=== PATIENT | male | born 1965 | race Asian ===

== ENCOUNTER 2022-05-26 11:34 | Emergency (ER) | payer OTHER ==
[~2022-05-26] VITALS: Ht 170.2 cm; Wt 73.5 kg
[2022-05-26 11:57] VITALS: TEMP 99.1
[2022-05-26 14:15] VITALS: BP 180/99
== END 2022-05-26 14:15 | disposition home or self-care (01) ==
LOC: ED 11:34
PROC: 2W3DX1Z Immobilization of Left Lower Arm using Splint (ICD-10-PCS; principal; 2022-05-26)
DX: S52.532A Colles' fracture of left radius, initial encounter for closed fracture (principal); S62.397A Other fracture of fifth metacarpal bone, left hand, initial encounter for closed fracture; S52.615A Nondisplaced fracture of left ulna styloid process, initial encounter for closed fracture; V86.59XA Driver of other special all-terrain or other off-road motor vehicle injured in nontraffic accident, initial encounter; Y92.89 Other specified places as the place of occurrence of the external cause
CPT/HCPCS: 96372; 99283; J1885

== ENCOUNTER 2023-04-25 14:00 | Emergency (ER) | payer OTHER ==
[~2023-04-25] VITALS: Ht 170.2 cm; Wt 70.3 kg
[2023-04-25 14:05] VITALS: BP 142/84; TEMP 98.1
[2023-04-25 14:49] LABS: PLATELET COUNT 127 K/uL (142-355)
[2023-04-25 14:58] LABS: POTASSIUM 3.9 mmol/L (3.6-5.2)
== END 2023-04-25 16:45 | disposition left against medical advice (07) ==
LOC: ED 14:00
PROVIDERS: Family Medicine
DX: R10.11 Right upper quadrant pain (principal); B34.9 Viral infection, unspecified
CPT/HCPCS: 80053; 81002; 83690; 84484; 85027; 93005; 96374; 99284; J1885; Q9963